=== PATIENT | male | born 1975 | race Caucasian/White ===

== ENCOUNTER 2017-12-04 00:07 | Emergency (ER) | payer OTHER ==
[2017-12-04] MEDS ORDERED: IBUPROFEN 600 MG TAB PO STA (01:07)
--- NOTE | 2017-12-04 01:11 | ED ---
General Adult HPI - General Chief complaint: Recheck/Abnormal Lab/Rx Stated complaint: Syncope Time Seen by Provider: 12/04/17 00:32 Source: patient, RN notes reviewed Mode of arrival: ambulatory Limitations: no limitations - History of Present Illness Initial comments: This is a 42-year-old male who presents to the emergency department with multiple complaints. Patient states that he is visiting his mother who has been hospitalized in the ICU. He states that he has been sober from alcohol for the past 2 years. Patient states that he has been very stressed with his mother in the hospital and drank approximately 8 beers today. He states that he "fell out" twice today. Patient describes this as passing out for approximately 5-7 minutes each time. Patient states the first time he was awoken by his cell phone ringing and the second time he was awoke by a stranger while he was at the home. Patient also complains of right upper quadrant pain and nausea. He does state he has a history of pancreatitis. Patient states he also feels short of breath. Denies fevers or chills, chest pain. - Related Data Allergies Allergy/AdvReac Type Severity Reaction Status Date / Time No Known Allergies Allergy Verified 12/04/17 00:31 Review of Systems ROS Statement: Those systems with pertinent positive or pertinent negative responses have been documented in the HPI. ROS Other: All systems not noted in ROS Statement are negative. Past Medical History Past Medical History: Diabetes Mellitus, Liver Disease, Renal Disease Additional Past Medical History / Comment(s): gout, Kidney stones, Heart murmur, History of Any Multi-Drug Resistant Organisms: None Reported Past Surgical History: No Surgical Hx Reported Past Psychological History: No Psychological Hx Reported Smoking Status: Current every day smoker Past Alcohol Use History: Occasional Past Drug Use History: None Reported General Exam - General Exam Comments Initial Comments: General: Awake and alert, well-developed; in no apparent distress. Patient speaking rapidly. Will not make eye contact. HEENT: Head atraumatic, normocephalic. Pupils are equal, round and reactive to light. Extraocular movements intact. Oropharynx moist without erythema or exudate. Neck: Supple. Normal ROM. Cardiovascular: Regular rate and rhythm. No murmurs, rubs or gallops. Chest symmetrical. Respiratory: Lungs clear to auscultation bilaterally. No wheezes, rales or rhonchi. Normal respiratory effort with no use of accessory muscles. Abdomen: Soft, non-distended. Generalized tenderness on palpation, however increased tenderness to the right upper quadrant and epigastric regions with associated guarding. No rebound or rigidity. Normal bowel sounds in all 4 quadrants. Musculoskeletal: Normal ROM, no tenderness bilateral upper and lower extremities. Ambulating normally. Skin: [place], warm and dry without rashes or lesions. Neurological: Alert and oriented x3. CN II-XII grossly intact. Speech is fluent and answers are appropriate. No focal neuro deficits. Psychiatric: Patient does appear intoxicated. Hyperverbal. Poor insight and historian. Limitations: no limitations Course Vital Signs 12/04/17 12/04/17 12/04/17 00:24 01:04 01:16 Temperature 98.2 F Pulse Rate 128 H 108 H Pulse Rate [ 116 H Flavorings Compounder ] Respiratory 18 18 Rate Blood Pressure 135/95 117/77 O2 Sat by Pulse 98 98 Oximetry 12/04/17 02:28 Temperature Pulse Rate 112 H Pulse Rate [ Flavorings Compounder ] Respiratory 18 Rate Blood Pressure 134/76 O2 Sat by Pulse 95 Oximetry EKG Findings - EKG Comments: EKG Findings:: 0:53:15. Sinus tachycardia, otherwise normal ECG. Ventricular rate 106 bpm, UT interval 144, QRS duration 78, QT/QTC 328/435 Medical Decision Making - Medical Decision Making This is a 42-year-old male who presented to the emergency department with multiple complaints. Patient stated that he has been sober from alcohol for the past 2 years. He states that his mother has been in the ICU and then he drank alcohol today. He states that he drank 8 beers. Blood alcohol content is 278. Patient is not sober until 11 AM tomorrow. EKG revealed sinus tachycardia. This was discussed with patient who states he will try to find a ride home. Patient also tested positive for cocaine. Patient has had tachycardia while in the emergency department. This is most likely directly related to cocaine use. Patient complained of shortness of breath as well as right upper quadrant abdominal pain. CBC, CMP and UA were unremarkable. Liver , kidney, gallbladder and pancreatic enzymes were within normal limits. Patient complained of passing out twice today. Computed tomography scan of the brain was obtained which revealed no acute abnormalities. Findings were discussed with patient who does admit to using cocaine earlier in the day. Patient was advised that he is not sober until 11 AM this morning. He will not be discharged home unless he finds a ride. - Lab Data Result diagrams: 12/04/17 01:01 12/04/17 01:01 Lab Results 12/04/17 12/04/17 12/04/17 Range/Units 01:01 01:01 01:01 WBC 4.6 (3.8-10.6) k/uL RBC 4.94 (4.30-5.90) m/uL Hgb 14.2 (13.0-17.5) gm/dL Hct 42.3 (39.0-53.0) % MCV 85.7 (80.0-100.0) fL MCH 28.7 (25.0-35.0) pg MCHC 33.6 (31.0-37.0) g/dL RDW 15.0 (11.5-15.5) % Plt Count 272 (150-450) k/uL Neutrophils % 42 % Lymphocytes % 44 % Monocytes % 7 % Eosinophils % 2 % Basophils % 1 % Neutrophils # 2.0 (1.3-7.7) k/uL Lymphocytes # 2.0 (1.0-4.8) k/uL Monocytes # 0.3 (0-1.0) k/uL Eosinophils # 0.1 (0-0.7) k/uL Basophils # 0.1 (0-0.2) k/uL PT 10.4 (9.0-12.0) sec INR 1.1 (<1.2) APTT 24.2 (22.0-30.0) sec Sodium 144 (137-145) mmol/L Potassium 4.0 (3.5-5.1) mmol/L Chloride 103 (98-107) mmol/L Carbon Dioxide 22 (22-30) mmol/L Anion Gap 19 mmol/L BUN 14 (9-20) mg/dL Creatinine 0.70 (0.66-1.25) mg/dL Est GFR (CKD-EPI)AfAm >90 (>60 ml/min/1.73 sqM) Est GFR (CKD-EPI)NonAf >90 (>60 ml/min/1.73 sqM) Glucose 115 H (74-99) mg/dL Calcium 9.5 (8.4-10.2) mg/dL Magnesium 1.8 (1.6-2.3) mg/dL Total Bilirubin 0.4 (0.2-1.3) mg/dL AST 31 (17-59) U/L ALT 24 (21-72) U/L Alkaline Phosphatase 106 (38-126) U/L Ammonia (<30) umol/L Troponin I (0.000-0.034) ng/mL Total Protein 8.8 H (6.3-8.2) g/dL Albumin 4.8 (3.5-5.0) g/dL Amylase 89 (30-110) U/L Lipase 292 (23-300) U/L Urine Color Urine Appearance (Clear) Urine pH (5.0-8.0) Ur Specific [place] (1.001-1.035) Urine Protein (Negative) Urine Glucose (UA) (Negative) Urine Ketones (Negative) Urine Blood (Negative) Urine Nitrite (Negative) Urine Bilirubin (Negative) Urine Urobilinogen (<2.0) mg/dL Ur Leukocyte Esterase (Negative) Urine RBC (0-5) /hpf Urine WBC (0-5) /hpf Urine Bacteria (None) /hpf Hyaline Casts (0-2) /lpf Urine Mucus (None) /hpf Salicylates <1.0 mg/dL Urine Opiates Screen (NotDetected) Ur Oxycodone Screen (NotDetected) Urine Methadone Screen (NotDetected) Ur Propoxyphene Screen (NotDetected) Acetaminophen <10.0 ug/mL Ur Barbiturates Screen (NotDetected) U Tricyclic Antidepress (NotDetected) Ur Phencyclidine Scrn (NotDetected) Ur Amphetamines Screen (NotDetected) U Methamphetamines Scrn (NotDetected) U Benzodiazepines Scrn (NotDetected) Urine Cocaine Screen (NotDetected) U Marijuana (THC) Screen (NotDetected) Serum Alcohol 278 mg/dL 12/04/17 12/04/17 12/04/17 Range/Units 01:01 01:01 01:05 WBC (3.8-10.6) k/uL RBC (4.30-5.90) m/uL Hgb (13.0-17.5) gm/dL Hct (39.0-53.0) % MCV (80.0-100.0) fL MCH (25.0-35.0) pg MCHC (31.0-37.0) g/dL RDW (11.5-15.5) % Plt Count (150-450) k/uL Neutrophils % % Lymphocytes % % Monocytes % % Eosinophils % % Basophils % % Neutrophils # (1.3-7.7) k/uL Lymphocytes # (1.0-4.8) k/uL Monocytes # (0-1.0) k/uL Eosinophils # (0-0.7) k/uL Basophils # (0-0.2) k/uL PT (9.0-12.0) sec INR (<1.2) APTT (22.0-30.0) sec Sodium (137-145) mmol/L Potassium (3.5-5.1) mmol/L Chloride (98-107) mmol/L Carbon Dioxide (22-30) mmol/L Anion Gap mmol/L BUN (9-20) mg/dL Creatinine (0.66-1.25) mg/dL Est GFR (CKD-EPI)AfAm (>60 ml/min/1.73 sqM) Est GFR (CKD-EPI)NonAf (>60 ml/min/1.73 sqM) Glucose (74-99) mg/dL Calcium (8.4-10.2) mg/dL Magnesium (1.6-2.3) mg/dL Total Bilirubin (0.2-1.3) mg/dL AST (17-59) U/L ALT (21-72) U/L Alkaline Phosphatase (38-126) U/L Ammonia 25 (<30) umol/L Troponin I <0.012 (0.000-0.034) ng/mL Total Protein (6.3-8.2) g/dL Albumin (3.5-5.0) g/dL Amylase (30-110) U/L Lipase (23-300) U/L Urine Color Yellow Urine Appearance Clear (Clear) Urine pH 5.5 (5.0-8.0) Ur Specific [place] 1.022 (1.001-1.035) Urine Protein 1+ H (Negative) Urine Glucose (UA) Negative (Negative) Urine Ketones Negative (Negative) Urine Blood Trace H (Negative) Urine Nitrite Negative (Negative) Urine Bilirubin Negative (Negative) Urine Urobilinogen <2.0 (<2.0) mg/dL Ur Leukocyte Esterase Negative (Negative) Urine RBC 1 (0-5) /hpf Urine WBC 5 (0-5) /hpf Urine Bacteria Rare H (None) /hpf Hyaline Casts 27 H (0-2) /lpf Urine Mucus Occasional H (None) /hpf Salicylates mg/dL Urine Opiates Screen Not Detected (NotDetected) Ur Oxycodone Screen Not Detected (NotDetected) Urine Methadone Screen Not Detected (NotDetected) Ur Propoxyphene Screen Not Detected (NotDetected) Acetaminophen ug/mL Ur Barbiturates Screen Not Detected (NotDetected) U Tricyclic Antidepress Not Detected (NotDetected) Ur Phencyclidine Scrn Not Detected (NotDetected) Ur Amphetamines Screen Not Detected (NotDetected) U Methamphetamines Scrn Not Detected (NotDetected) U Benzodiazepines Scrn Not Detected (NotDetected) Urine Cocaine Screen Detected H (NotDetected) U Marijuana (THC) Screen Not Detected (NotDetected) Serum Alcohol mg/dL - Radiology Data Radiology results: report reviewed CT brain without contrast impression: Negative computed tomography scan of brain. Disposition Clinical Impression: Alcohol intoxication, Cocaine intoxication Disposition: HOME SELF-CARE Condition: Fair Instructions: Alcohol Intoxication (ED), Abuse of Alcohol (ED), Cocaine Abuse ( ED) Additional Instructions: Please follow up with primary care provider within 1-2 days. Return to emergency department if symptoms should worsen or any concerns arise. Is patient prescribed a controlled substance at d/c from ED?: No Referrals: None,Stated [Primary Care Provider] - 1-2 days
[2017-12-04] MEDS ORDERED: SODIUM CHLORIDE 0.9% 1,000 ML IV STA (01:13)
[2017-12-04] MEDS ORDERED: ONDANSETRON 4 MG/2 ML VIAL IVP STA (01:31)
--- NOTE | 2017-12-04 01:34 | CT ---
EXAMINATION TYPE: CT brain wo con DATE OF EXAM: 12/04/2017 COMPARISON: NONE HISTORY: No prior, RUQ abd pain with syncopal episodes x2 today CT DLP: 1168 mGycm. Automated Exposure Control for Dose Reduction was Utilized. TECHNIQUE: CT scan of the head is performed without contrast. FINDINGS: Ventricles and sulci appear normal. There is no mass effect nor midline shift. There is no sign of intracranial hemorrhage. The calvarium appears normal. IMPRESSION: Negative CT scan of the brain.
[2017-12-04 01:41] LABS: INR 1.1 (<1.2); Partial Thromboplastin Time 24.2 sec (22.0-30.0); Prothrombin Time 10.4 sec (9.0-12.0)
[2017-12-04 01:44] LABS: ALT 24 U/L (21-72); AST 31 U/L (17-59); Acetaminophen <10.0 ug/mL; Albumin 4.8 g/dL (3.5-5.0); Alkaline Phosphatase 106 U/L (38-126); Amylase 89 U/L (30-110); Anion Gap 19 mmol/L; Blood Urea Nitrogen 14 mg/dL (9-20); Calcium 9.5 mg/dL (8.4-10.2); Carbon Dioxide 22 mmol/L (22-30); Chloride 103 mmol/L (98-107); Glucose 115 mg/dL (74-99); Lipase 292 U/L (23-300); Magnesium 1.8 mg/dL (1.6-2.3); Salicylate <1.0 mg/dL; Sodium 144 mmol/L (137-145); Total Bilirubin 0.4 mg/dL (0.2-1.3); Total Protein 8.8 g/dL (6.3-8.2)
[2017-12-04 01:44] LABS: Appearance,Urine Clear (Clear); Bacteria,Urine Rare /hpf; Bilirubin,Urine Negative (Negative); Blood,Urine Trace (Negative); Color,Urine Yellow; Glucose,Urine (UA) Negative (Negative); Hyaline Casts,Urine 27 /lpf (0-2); Ketones,Urine Negative (Negative); Leukocyte Esterase,Urine Negative (Negative); Mucus,Urine Occasional /hpf; Nitrite,Urine Negative (Negative); PH, Urine 5.5 (5.0-8.0); Protein,Urine 1+ (Negative); RBC,Urine 1 /hpf (0-5); Specific Gravity,Urine 1.022 (1.001-1.035); Urobilinogen,Urine <2.0 mg/dL (<2.0); WBC,Urine 5 /hpf (0-5)
[2017-12-04 01:49] LABS: Basophils # (A) 0.1 k/uL (0-0.2); Basophils % (A) 1 %; Eosinophils # (A) 0.1 k/uL (0-0.7); Eosinophils % (A) 2 %; HCT 42.3 % (39.0-53.0); HGB 14.2 gm/dL (13.0-17.5); Lymphocytes % (A) 44 %; MCH 28.7 pg (25.0-35.0); MCHC 33.6 g/dL (31.0-37.0); MCV 85.7 fL (80.0-100.0); Monocytes # (A) 0.3 k/uL (0-1.0); Monocytes % (A) 7 %; Neutrophils % (A) 42 %; Platelet Count 272 k/uL (150-450); RBC 4.94 m/uL (4.30-5.90); WBC 4.6 k/uL (3.8-10.6)
[2017-12-04 01:53] LABS: Amphetamine Screen,Urine Not Detected (NotDetected); Barbiturate Screen,Urine Not Detected (NotDetected); Benzodiazepines Screen,Urine Not Detected (NotDetected); Cocaine Screen,Urine Detected (NotDetected); Methadone Screen, Urine Not Detected (NotDetected); Opiate Screen,Urine Not Detected (NotDetected); Oxycodone Screen, Urine Not Detected (NotDetected); Phencyclidine Screen,Urine Not Detected (NotDetected); Tricyclic Antidepressant,Urine Not Detected (NotDetected); Urn Cannabinoid Scrn Not Detected (NotDetected)
[2017-12-04 02:11] LABS: Alcohol 278 mg/dL
[2017-12-04 11:14] VITALS: BP 133/83; PULSE 80; RESP 18; TEMP 98.4
== END 2017-12-04 11:13 | disposition home or self-care (01) ==
LOC: EC 00:07
DX: F10.129 Alcohol abuse with intoxication, unspecified (principal); F14.129 Cocaine abuse with intoxication, unspecified; R00.0 Tachycardia, unspecified; R06.02 Shortness of breath; R10.11 Right upper quadrant pain; R11.0 Nausea; F17.200 Nicotine dependence, unspecified, uncomplicated
CPT/HCPCS: 36415; 93005; 80053; 82140; 82150; 83690; 83735; 84484; 85025; 85610; 85730; 81001; 80306; 83520 ×2; 80320; 70450; 99284; 96374; 96361; J2405

== ENCOUNTER 2018-02-06 03:43 | Inpatient (IN) | payer MEDICAID, OTHER ==
[2018-02-06] MEDS ORDERED: IBUPROFEN 400 MG TAB PO STA (04:37)
[2018-02-06] MEDS ORDERED: KETOROLAC 30 MG/ML 1 ML VIAL IVP STA ×2 (04:47→10:51)
[2018-02-06 05:13] LABS: HCT 42.7 % (39.0-53.0); HGB 14.1 gm/dL (13.0-17.5); MCH 28.4 pg (25.0-35.0); MCV 85.9 fL (80.0-100.0); Platelet Count 167 k/uL (150-450); RBC 4.97 m/uL (4.30-5.90); RDW 15.2 % (11.5-15.5); WBC 4.5 k/uL (3.8-10.6)
[2018-02-06 05:23] LABS: ALT 66 U/L (21-72); AST 106 U/L (17-59); Albumin 4.9 g/dL (3.5-5.0); Alkaline Phosphatase 114 U/L (38-126); Amylase 121 U/L (30-110); Anion Gap 14 mmol/L; Blood Urea Nitrogen 10 mg/dL (9-20); Calcium 9.2 mg/dL (8.4-10.2); Carbon Dioxide 22 mmol/L (22-30); Chloride 107 mmol/L (98-107); Glucose 104 mg/dL (74-99); Lipase 369 U/L (23-300); Potassium 3.8 mmol/L (3.5-5.1); Sodium 143 mmol/L (137-145); Total Bilirubin 0.5 mg/dL (0.2-1.3); Total Protein 9.2 g/dL (6.3-8.2)
[2018-02-06 05:33] LABS: Appearance,Urine Clear (Clear); Bilirubin,Urine Negative (Negative); Blood,Urine Trace (Negative); Color,Urine Yellow; Glucose,Urine (UA) Negative (Negative); Hyaline Casts,Urine 6 /lpf (0-2); Ketones,Urine Negative (Negative); Leukocyte Esterase,Urine Negative (Negative); Mucus,Urine Rare /hpf; Nitrite,Urine Negative (Negative); Protein,Urine 1+ (Negative); RBC,Urine <1 /hpf (0-5); Specific Gravity,Urine 1.022 (1.001-1.035); Urobilinogen,Urine <2.0 mg/dL (<2.0); WBC,Urine 1 /hpf (0-5)
[2018-02-06 06:24] LABS: Eosinophils # (M) 0.09 k/uL (0-0.7); Lymphocytes # (M) 1.89 k/uL (1.0-4.8); Monocytes # (M) 0.41 k/uL (0-1.0); Neutrophils # (M) 2.12 k/uL (1.3-7.7); Neutrophils % (M) 47 %; Nucleated Red Blood Cells 0 /100 WBC (0-0); Total Cells Counted 100
[2018-02-06 06:25] LABS: Anisocytosis (M) Present
[2018-02-06 06:30] LABS: Polychromasia Present
[2018-02-06] MEDS ORDERED: DICYCLOMINE 10 MG/ML 2 ML AMP IM STA (06:30)
[2018-02-06 06:35] LABS: Poikilocytosis (M) Present
--- NOTE | 2018-02-06 06:40 | ED ---
Psych HPI - General Source: EMS Mode of arrival: EMS Limitations: no limitations - History of Present Illness MD Complaint: other -: unknown Associated Psychiatric Symptoms: racing thoughts Quality: constant Improves With: none Worsens With: none <Alfonzo Lyons - Last Filed: 02/06/18 06:36> <Rob Oliveira - Last Filed: 02/07/18 15:36> - General Chief Complaint: Psychiatric Symptoms Stated Complaint: Petition Time Seen by Provider: 02/06/18 04:01 - History of Present Illness Initial Comments: This patient is a 43-year-old man brought by EMS to have psychiatric evaluation. The patient reports that he had called police to have them bring him to the [facility]. He states that he had to report the crime that was going on, however he states that the police called the ambulance and had him brought here. The patient states that he is aware of some drug crime that are going on and that the FBI and [facility] will want to know information that he has. Patient denies suicidal or homicidal ideation. (Alfonzo Lyons) - Related Data Home Medications Medication Instructions Recorded Confirmed No Known Home Medications 02/06/18 02/06/18 Allergies Allergy/AdvReac Type Severity Reaction Status Date / Time No Known Allergies Allergy Verified 12/04/17 08:13 Review of Systems ROS Other: All systems not noted in ROS Statement are negative. Constitutional: Denies: fever, chills Eyes: Denies: vision change Respiratory: Denies: cough, dyspnea Cardiovascular: Denies: chest pain, palpitations Gastrointestinal: Reports: abdominal pain. Denies: vomiting, diarrhea Genitourinary: Denies: dysuria Musculoskeletal: Denies: back pain Skin: Denies: rash Neurological: Denies: headache, weakness, numbness Psychiatric: Reports: anxiety. Denies: visual hallucinations, homicidal thoughts, suicidal thoughts <Alfonzo Lyons - Last Filed: 02/06/18 06:36> ROS Other: All systems not noted in ROS Statement are negative. <Rob Oliveira - Last Filed: 02/07/18 15:36> ROS Statement: Those systems with pertinent positive or pertinent negative responses have been documented in the HPI. Past Medical History Past Medical History: Diabetes Mellitus, Liver Disease, Renal Disease Additional Past Medical History / Comment(s): gout, Kidney stones, Heart murmur, History of Any Multi-Drug Resistant Organisms: None Reported Past Surgical History: No Surgical Hx Reported Past Psychological History: No Psychological Hx Reported Smoking Status: Current every day smoker Past Alcohol Use History: Occasional Past Drug Use History: None Reported <YesicaAlfonzo marx - Last Filed: 02/06/18 06:36> General Exam Limitations: no limitations General appearance: alert, in no apparent distress Head exam: Present: atraumatic, normocephalic Eye exam: Present: normal appearance. Absent: scleral icterus, conjunctival injection Respiratory exam: Present: normal lung sounds bilaterally. Absent: respiratory distress, wheezes, rales, rhonchi, stridor Cardiovascular Exam: Present: regular rate, normal rhythm, normal heart sounds. Absent: systolic murmur, diastolic murmur, rubs, gallop GI/Abdominal exam: Present: soft. Absent: distended, tenderness, guarding, rebound, mass Neurological exam: Present: alert, oriented X3, normal gait Psychiatric exam: Present: anxious. Absent: depressed, agitated, flat affect, homicidal ideation, suicidal ideation Skin exam: Present: warm, dry, intact, normal color. Absent: rash <SerenaAlfonzo - Last Filed: 02/06/18 06:36> Course <SerenaAlfonzo - Last Filed: 02/06/18 06:36> <Rob Oliveira - Last Filed: 02/07/18 15:36> Vital Signs 02/06/18 02/06/18 02/06/18 03:48 06:27 10:55 Temperature 97.5 F L 97.5 F L Pulse Rate 129 H 79 116 H Respiratory 20 20 24 Rate Blood Pressure 139/72 117/70 109/66 O2 Sat by Pulse 96 99 98 Oximetry 02/06/18 02/07/18 02/07/18 22:36 00:15 03:43 Temperature Pulse Rate 75 Respiratory 16 17 16 Rate Blood Pressure 144/89 O2 Sat by Pulse 99 Oximetry 02/07/18 07:39 Temperature Pulse Rate 92 Respiratory 18 Rate Blood Pressure 124/74 O2 Sat by Pulse 98 Oximetry - Reevaluation(s) Reevaluation #1: 02/06/18 16:09 Patient is resting comfortably throughout the day I did fill out a clinical certification the patient. He is pending transfer or admission based on bed availability. (Rob Oliveira) Medical Decision Making - Lab Data Result diagrams: 02/06/18 04:56 02/06/18 04:56 <YesicaAlfonzo marx - Last Filed: 02/06/18 06:36> - Lab Data Result diagrams: 02/06/18 04:56 02/06/18 04:56 <Rob Oliveira - Last Filed: 02/07/18 15:36> - Medical Decision Making Patient was evaluated again by the EPS service she will be admitted to this facility (Rob Oliveira) - Lab Data Lab Results 02/06/18 02/06/18 02/06/18 Range/Units 04:56 04:56 05:12 WBC 4.5 (3.8-10.6) k/uL RBC 4.97 (4.30-5.90) m/uL Hgb 14.1 (13.0-17.5) gm/dL Hct 42.7 (39.0-53.0) % MCV 85.9 (80.0-100.0) fL MCH 28.4 (25.0-35.0) pg MCHC 33.0 (31.0-37.0) g/dL RDW 15.2 (11.5-15.5) % Plt Count 167 (150-450) k/uL Neutrophils % (Manual) 47 % Lymphocytes % (Manual) 42 % Monocytes % (Manual) 9 % Eosinophils % (Manual) 2 % Neutrophils # (Manual) 2.12 (1.3-7.7) k/uL Lymphocytes # (Manual) 1.89 (1.0-4.8) k/uL Monocytes # (Manual) 0.41 (0-1.0) k/uL Eosinophils # (Manual) 0.09 (0-0.7) k/uL Nucleated RBCs 0 (0-0) /100 WBC Manual Slide Review Performed Polychromasia Present Poikilocytosis (manual Present Anisocytosis (manual) Present Sodium 143 (137-145) mmol/L Potassium 3.8 (3.5-5.1) mmol/L Chloride 107 (98-107) mmol/L Carbon Dioxide 22 (22-30) mmol/L Anion Gap 14 mmol/L BUN 10 (9-20) mg/dL Creatinine 0.70 (0.66-1.25) mg/dL Est GFR (CKD-EPI)AfAm >90 (>60 ml/min/1.73 sqM) Est GFR (CKD-EPI)NonAf >90 (>60 ml/min/1.73 sqM) Glucose 104 H (74-99) mg/dL Calcium 9.2 (8.4-10.2) mg/dL Total Bilirubin 0.5 (0.2-1.3) mg/dL AST 106 H (17-59) U/L ALT 66 (21-72) U/L Alkaline Phosphatase 114 (38-126) U/L Total Protein 9.2 H (6.3-8.2) g/dL Albumin 4.9 (3.5-5.0) g/dL Amylase 121 H (30-110) U/L Lipase 369 H (23-300) U/L TSH 1.000 (0.465-4.680) mIU/L Urine Color Yellow Urine Appearance Clear (Clear) Urine pH 5.0 (5.0-8.0) Ur Specific [place] 1.022 (1.001-1.035) Urine Protein 1+ H (Negative) Urine Glucose (UA) Negative (Negative) Urine Ketones Negative (Negative) Urine Blood Trace H (Negative) Urine Nitrite Negative (Negative) Urine Bilirubin Negative (Negative) Urine Urobilinogen <2.0 (<2.0) mg/dL Ur Leukocyte Esterase Negative (Negative) Urine RBC <1 (0-5) /hpf Urine WBC 1 (0-5) /hpf Hyaline Casts 6 H (0-2) /lpf Urine Mucus Rare H (None) /hpf Disposition <Alfonzo Lyons - Last Filed: 02/06/18 06:36> <Rob Oliveira - Last Filed: 02/07/18 15:36> Clinical Impression: Acute psychosis Disposition: TRANSFER TO PSYCH HOSP/UNIT Condition: Stable Referrals: None,Stated [Primary Care Provider] - 1-2 days
[2018-02-07] MEDS ORDERED: DICYCLOMINE 20 MG TAB PO STA ×2 (00:04→14:39)
[2018-02-07] MEDS ORDERED: LORazepam 2 MG/ML INJ IV STA (00:04)
[2018-02-07] MEDS ORDERED: MAGNESIUM HYDROXIDE 2,400 MG/10 ML CUP PO PRN (16:00)
[2018-02-07] MEDS ORDERED: ACETAMINOPHEN TAB 325 MG TAB PO PRN (16:00)
[2018-02-07] MEDS ORDERED: ZIPRASIDONE 20 MG VIAL IM PRN (16:00)
[2018-02-07] MEDS: LORazepam 1 MG TAB PO PRN (20:39)
--- NOTE | 2018-02-07 23:06 | P.MDCNMH ---
History of Present Illness H&P Date: 02/07/18 Chief Complaint: RUQ abd discomfort 43-year-old male with history of hypertension. Patient was brought into the hospital by an ambulance due to him calling the police asking to see the [employer] to report some drug crimes. He denies any suicidal or homicidal ideation. He reports that he knows some information about the current drug crimes is going on. Patient also reported some right upper quadrant abdominal pain that has been going on for 2 years he described it as achy pain sometimes sharp 7 out of 10 in severity when it severe comes and goes no aggravating or alleviating factors. Even when he quit alcohol for 10 months the pain persisted. He reports that the pain doesn't wake him up from sleep there is no nausea or vomiting. He denies any changes in his bowel habits but he reports symptoms she feels bloated. Patient otherwise denies any fevers chills, chest pain or trouble breathing, denies any GI bleeding. He has seen a physician in the past who told him that he has liver cirrhosis he never had colonoscopy done Review of Systems Pertinent positives as noted in HPI. All other systems were reviewed and are negative Past Medical History Past Medical History: Diabetes Mellitus, Hypertension, Liver Disease, Renal Disease Additional Past Medical History / Comment(s): gout, Kidney stones, Heart murmur, History of Any Multi-Drug Resistant Organisms: None Reported Past Surgical History: No Surgical Hx Reported Past Psychological History: No Psychological Hx Reported Smoking Status: Current every day smoker Past Alcohol Use History: Occasional Past Drug Use History: None Reported - Past Family History Family Additional Family Medical History / Comment(s): Denies family history of CAD Medications and Allergies Home Medications Medication Instructions Recorded Confirmed Type No Known Home Medications 02/06/18 02/06/18 History Allergies Allergy/AdvReac Type Severity Reaction Status Date / Time No Known Allergies Allergy Verified 12/04/17 08:13 Physical Exam Vitals: Vital Signs Temp Pulse Pulse Resp BP BP Pulse Ox 02/07/18 16:37 97.0 F L 82 15 133/84 02/07/18 07:39 92 18 124/74 98 02/07/18 03:43 16 02/07/18 00:15 75 17 144/89 99 Intake and Output 02/07/18 02/07/18 02/07/18 06:59 14:59 22:59 Other: Weight 77.1 kg Constitutional: No acute distress, conversant, pleasant Eyes: Anicteric sclerae, moist conjunctiva, no lid-lag Pupils equal round reactive to light ENMT: NC/AT Oropharynx clear, no erythema, exudates Neck: Supple, FROM, no masses, or JVD No carotid bruits No thyromegaly Lungs: Clear to auscultation Clear to percussion Normal respiratory effort, no accessory muscle use Cardiovascular: Heart regular in rate and rhythm, No murmurs, gallops, or rubs No peripheral edema Abdominal: Soft, some discomfort to deep palpation of the right upper quadrant, no guarding, rebound or rigidity Abdomen moving with respiration Normoactive bowel sounds No hepatomegaly, No splenomegaly No palpable mass No abdominal wall hernia noted Skin: Normal temperature, tone, texture, turgor No induration No subcutaneous nodules No rash, lesions No ulcers Extremities: No digital cyanosis No clubbing Pedal pulses intact and symmetrical Radial pulses intact and symmetrical No calf tenderness Psychiatric: Alert and oriented to person, place and time Manic affect Poor judgment Neuro Muscles Strength 5/5 in all 4 extremities Sensation to light touch grossly present throughout Cranial nerves II-XII grossly intact No focal sensory deficits Lymphatics: no palpable cervical or supraclavicular , or inguinal lymph nodes Cranial Nerve Examination - Cranial Nerves Cranial Nerve II- Optic: Intact Cranial Nerve III- Oculomotor: Intact Cranial Nerve IV- Trochlear: Intact Cranial Nerve V- Trigeminal: Intact Cranial Nerve - Abducens: Intact Cranial Nerve VII- Facial: Intact Cranial Nerve VIII- Auditory: Intact Cranial Nerve IX- Glossopharyngeal: Intact Cranial Nerve X- Vagus: Intact Cranial Nerve XI- Accessory: Intact Cranial Nerve XII- Hypoglossal: Intact Results CBC & Chem 7: 02/06/18 04:56 02/06/18 04:56 Assessment and Plan Assessment: 43-year-old male presented to the hospital with delusional thoughts, medicine was counseled to do the right upper quadrant abdominal pain which has been going on for 2 years. Patient was told in the past that he has liver cirrhosis. Plan: Delusional thoughts Management per psych Right upper quadrant abdominal pain Slightly elevated liver enzymes Slightly elevated lipase, nonspecific Check right upper quadrant abdominal ultrasound to rule out gallstones, liver cirrhosis or fatty liver Alcohol abuse Withdrawal precautions Thiamine CIWA when necessary benzo Patient is low risk for DVT patient is ambulatory Thank you for allowing us to participate in the care of this patient. We will follow peripherally. Do not hesitate to contact us with questions. Someone can be reached from the [facility] hospitalist group at all hours of the day at [phone].
[2018-02-08] MEDS: LORazepam 1 MG TAB PO PRN ×2 (08:32→21:22)
--- NOTE | 2018-02-08 11:33 | US ---
EXAMINATION TYPE: US abdomen limited DATE OF EXAM: 02/08/2018 COMPARISON: NONE CLINICAL HISTORY: RUQ abd discomfort , alcohol abuse. Pt states ABD pain EXAM MEASUREMENTS: Liver Length: 13.9 cm Gallbladder Wall: 0.3 cm CBD: 0.3 cm Right Kidney: 11.9 x 5.9 x 6.0 cm Pancreas: Obscured by bowel gas Liver: There is some increased echogenicity, coarse appearance within the liver without focal mass. Gallbladder: wnl Evidence for sonographic Amaral's sign: Yes CBD: wnl Right Kidney: wnl There is no ascites. IMPRESSION: Exam is limited. Correlate for possible hepatocellular disease, possible hepatic steatosi s.
--- NOTE | 2018-02-08 15:23 | P.HP ---
Psychiatric H&P - . H&P Date: 02/08/18 History & Physical: IDENTIFYING DATA: The patient is a 43-year-old single [place] male who presented to the psychiatric unit voluntarily. HISTORY OF PRESENT ILLNESS: He stated that he agreed to this admission because staff in the emergency room told him that unless he came to the psychiatric unit he would be restrained. He alleged that he does not understand the reason the police brought him to the emergency room. He was temporarily staying with his mother who has a "summer home" in [facility]. He stated that he called the state police because he wanted to address an old DUI citation. On the telephone an officer told him that they have no record of an old DUI citation. After telephone call he left his mother's home and several police officers approached him. He alleged the officers told that they're taking him to this hospital because the hospital was "closer than [facility]." He alleged that his mother completed a petition but I could not find a copy of the petition and his medical record. On presentation to the ER his blood alcohol level was 0.204. He was restless and agitated and required IM sedation. He has a history of alcohol use problems and was discharged from [facility] in January 2018 to one of the [facility]. He was discharge from a three-quarter house after he returned from a pass intoxicated. After he left [facility] he went to his mother's home in [facility]. He denied feeling depressed, hopeless or helpless. He denied feelings of guilt or thoughts of or suicide. He denied persistent insomnia, thoughts or feelings of incapacity, fatigue and weakness. He denied subjective tension or irritability. He denied somatic anxiety symptoms. He denied persistent anxiety that interferes with his ability to function. He denied experiencing anxiety that built up to crescendo consistent with panic attacks. He denied obsessions or compulsions. He denied experiencing psychotic symptoms such as auditory, visual or olfactory hallucinations, ideas reference, thought insertion set her up. He drinks alcohol but was vague about the amount and frequency. He denied use of other drugs to get high, help him sleep or changes mood. PAST PSYCHIATRIC HISTORY: He had one "brief" psychiatric hospitalization when he was living in [facility]. He denied that he has ever received outpatient mental health services. PAST MEDICAL HISTORY: He is a history of diabetes mellitus, hypertension, liver disease and kidney stones. The medicine consultation appreciated. ALLERGIES: No known ALLERGIES. SUBSTANCE USE HISTORY: He was vague about his history of substance use problems. He admitted a history of alcohol use problems and at least one episode of residential substance abuse treatment. He denied a history of abuse of other substances but I suspect he was not forthright about his use of drugs. He stated that he has experienced severe alcohol withdrawal symptoms in the past and may have had delirium tremens. FAMILY PSYCHIATRIC/SUBSTANCE USE HISTORY: Denied. LEGAL HISTORY: He denied current legal problems. He is not on probation, parole or has pending charges. He stated that he has had multiple charges of past including concealed weapon, uttering and publishing and distribution. He was vague and evasive about his history of arrests or incarceration. SOCIAL HISTORY: He was born and raised in [place] to an intact family. He has 2 brothers. He graduated from high school. He has not held gainful employment. He is currently homeless and has no income. He lived in [facility] for 3 years until returning to [place] earlier this year. MENTAL STATUS EXAM: He presented as a casually groomed 43-year-old male who was pleasant on approach. He made eye contact and attended to the interview. He had no distinguishing features or prominent physical abnormalities. He had a blunted but bright facial expression. He was alert and oriented to person, place and time. He showed no abnormality of psychomotor activity. His gait was steady. His speech was spontaneous with normal rate, rhythm and volume. His affect was blunted but stable and appropriate. He denied suicidal ideation or wishes. He denied homicidal ideation. He denied such depressive cognitions as hopelessness, helplessness or worthlessness. He did not express obsessions, phobias, ideas reference, paranoid ideation, delusions or overvalued ideas. His thinking was abstract and associations were coherent, logical and goal directed. He did not demonstrate clang associations, perseverations, neologisms or blocking. He denied hallucinations and did not appear to be responding to internal stimuli. Global impression of intellect is average to above. He is aware of his alcohol use problems but is unable to explain the circumstances that led to this hospitalization. STRENGTHS: Supportive family, good physical health. WEAKNESSES: Lack of stable housing, lack of income, chronic use of alcohol. IMPRESSION: He is a 43-year-old -[place] male who presented to the psychiatric unit voluntarily. He has a history of alcohol use disorder and was intoxicated on presentation to the ER. He is unable explain the reason for this hospitalization. He denied depression, suicidal ideation, significant anxiety or psychotic symptoms. His history of homelessness and history of multiple legal problems. PRINCIPLE DIAGNOSIS: Alcohol use disorder severe, alcohol intoxication, alcohol withdrawal, alcohol induced mood disorder, rule out alcohol withdrawal delirium , rule out antisocial personality disorder, pancreatitis RECOMMENDATION: Continue inpatient psychiatric hospitalization. Safety precautions. She will protocol with lorazepam for alcohol withdrawal. Consult medicine for initial physical exam and medical history. c iron worker to complete initial psychosocial assessment and assist with placement and aftercare. Monitor for signs and symptoms of delirium. Encourage participation in therapeutic groups and activities. Evaluate current status response to treatment on a daily basis. Allergies Allergy/AdvReac Type Severity Reaction Status Date / Time No Known Allergies Allergy Verified 12/04/17 08:13 Vital Signs Temp 97.8 F 02/08/18 07:18 Pulse 83 02/08/18 07:18 Resp 18 02/08/18 07:18 BP 94/56 02/08/18 07:18 Pulse Ox 100 02/08/18 07:18 Intake & Output 02/07/18 02/08/18 02/08/18 18:59 06:59 18:59 Weight 77.1 kg Laboratory Last Values WBC 4.5 k/uL (3.8-10.6) 02/06/18 04:56 RBC 4.97 m/uL (4.30-5.90) 02/06/18 04:56 Hgb 14.1 gm/dL (13.0-17.5) 02/06/18 04:56 Hct 42.7 % (39.0-53.0) 02/06/18 04:56 MCV 85.9 fL (80.0-100.0) 02/06/18 04:56 MCH 28.4 pg (25.0-35.0) 02/06/18 04:56 MCHC 33.0 g/dL (31.0-37.0) 02/06/18 04:56 RDW 15.2 % (11.5-15.5) 02/06/18 04:56 Plt Count 167 k/uL (150-450) 02/06/18 04:56 Neutrophils % (Manual) 47 % 02/06/18 04:56 Lymphocytes % (Manual) 42 % 02/06/18 04:56 Monocytes % (Manual) 9 % 02/06/18 04:56 Eosinophils % (Manual) 2 % 02/06/18 04:56 Neutrophils # (Manual) 2.12 k/uL (1.3-7.7) 02/06/18 04:56 Lymphocytes # (Manual) 1.89 k/uL (1.0-4.8) 02/06/18 04:56 Monocytes # (Manual) 0.41 k/uL (0-1.0) 02/06/18 04:56 Eosinophils # (Manual) 0.09 k/uL (0-0.7) 02/06/18 04:56 Nucleated RBCs 0 /100 WBC (0-0) 02/06/18 04:56 Manual Slide Review Performed 02/06/18 04:56 Polychromasia Present 02/06/18 04:56 Poikilocytosis (manual Present 02/06/18 04:56 Anisocytosis (manual) Present 02/06/18 04:56 Sodium 143 mmol/L (137-145) 02/06/18 04:56 Potassium 3.8 mmol/L (3.5-5.1) 02/06/18 04:56 Chloride 107 mmol/L (98-107) 02/06/18 04:56 Carbon Dioxide 22 mmol/L (22-30) 02/06/18 04:56 Anion Gap 14 mmol/L 02/06/18 04:56 BUN 10 mg/dL (9-20) 02/06/18 04:56 Creatinine 0.70 mg/dL (0.66-1.25) 02/06/18 04:56 Est GFR (CKD-EPI)AfAm >90 (>60 ml/min/1.73 sqM) 02/06/18 04:56 Est GFR (CKD-EPI)NonAf >90 (>60 ml/min/1.73 sqM) 02/06/18 04:56 Glucose 104 mg/dL (74-99) H 02/06/18 04:56 Calcium 9.2 mg/dL (8.4-10.2) 02/06/18 04:56 Total Bilirubin 0.5 mg/dL (0.2-1.3) 02/06/18 04:56 AST 106 U/L (17-59) H 02/06/18 04:56 ALT 66 U/L (21-72) 02/06/18 04:56 Alkaline Phosphatase 114 U/L (38-126) 02/06/18 04:56 Total Protein 9.2 g/dL (6.3-8.2) H 02/06/18 04:56 Albumin 4.9 g/dL (3.5-5.0) 02/06/18 04:56 Amylase 121 U/L (30-110) H 02/06/18 04:56 Lipase 369 U/L (23-300) H 02/06/18 04:56 TSH 1.090 mIU/L (0.465-4.680) 02/06/18 04:56 Urine Color Yellow 02/06/18 05:12 Urine Appearance Clear (Clear) 02/06/18 05:12 Urine pH 5.0 (5.0-8.0) 02/06/18 05:12 Ur Specific [place] 1.022 (1.001-1.035) 02/06/18 05:12 Urine Protein 1+ (Negative) H 02/06/18 05:12 Urine Glucose (UA) Negative (Negative) 02/06/18 05:12 Urine Ketones Negative (Negative) 02/06/18 05:12 Urine Blood Trace (Negative) H 02/06/18 05:12 Urine Nitrite Negative (Negative) 02/06/18 05:12 Urine Bilirubin Negative (Negative) 02/06/18 05:12 Urine Urobilinogen <2.0 mg/dL (<2.0) 02/06/18 05:12 Ur Leukocyte Esterase Negative (Negative) 02/06/18 05:12 Urine RBC <1 /hpf (0-5) 02/06/18 05:12 Urine WBC 1 /hpf (0-5) 02/06/18 05:12 Hyaline Casts 6 /lpf (0-2) H 02/06/18 05:12 Urine Mucus Rare /hpf (None) H 02/06/18 05:12 02/08/18 15:00
[2018-02-08] MEDS: MAG HYDROX/AL HYDROX/SIMETH 30 ML CUP PO PRN (21:22)
[2018-02-09] MEDS: LORazepam 1 MG TAB PO PRN (10:20)
[2018-02-09] MEDS: MAG HYDROX/AL HYDROX/SIMETH 30 ML CUP PO PRN (10:49)
--- NOTE | 2018-02-09 16:10 | P.PN ---
Progress Note - Text Progress Note Date: 02/09/18 Interval history: Patient seen in [facility] today. He describes the circumstances around his admission. He makes reference to dealing with issues of pancreatitis. His amylase and lipase are elevated, he requests for me to write these numbers down for him. He does describe dealing with pain which currently is improved. Mental status exam: He is alert and cooperative with the interview. His affect does show range. He seems to describe his mood is doing pretty well. He denies any thoughts of harm to self or others. During the session he inquires regarding looking at the computer screen at a certain time and I deferred, related to confidentiality reasons, he made a reference to the [facility], when asked later in the session regarding this he relates that he was just joking. He does not show any significant agitation. He does not verbalize any hallucinations. He inquired regarding the results of the ultrasound which I did read to him the impressions, described to him that the impressions would best be interpreted from the internal medicine physician. Plan: Maintain current treatment regimen. We will ask medical to follow-up regarding concerns of abdominal pain, abdominal ultrasound results. We'll recheck amylase and lipase tomorrow. Continue to monitor his status. We'll continue to cover this patient through the weekend.
--- NOTE | 2018-02-09 17:49 | P.PN ---
Subjective Progress Note Date: 02/09/18 Principal diagnosis: abdominal pain Patient seen and examined regarding testing results. Discussed results with patient. Patient states that he has been having intermittent abdominal pain over the last 2 years. He also history of pancreatitis in the past. He continues to drink intermittently. This typically occurs randomly. Pain is mostly in his right upper quadrant and does not radiate. He denies any recent at risk behaviors such as IV drug use. Objective - Vital Signs Vital signs: Vital Signs Temp 98.2 F 02/09/18 06:44 Pulse 75 02/09/18 06:44 Resp 12 02/09/18 06:44 BP 102/64 02/09/18 06:44 Pulse Ox 100 02/08/18 07:18 - Exam General: non toxic, no distress, appears at stated age Derm: warm, dry Head: atraumatic, normocephalic, symmetric Eyes: EOMI, no lid lag, anicteric sclera Mouth: no lip lesion, mucus membranes moist Neuro: CN II-XI grossly intact, no focal neuro deficits Psych: Alert, oriented, appropriate affect - Labs CBC & Chem 7: 02/06/18 04:56 02/06/18 04:56 Assessment and Plan Assessment: Hepatic steatosis -Most likely related to drinking -Slightly elevated lipase but not diagnostic of otitis -We'll proceed with repeat CMP, lipase, and amylase in a.m. -Discussed with patient the importance of decreasing liver toxin exposure with hepatic steatosis and that this is a potentially reversible condition. Will check lipid profile. I've encouraged him that he needs to find a primary care provider to follow up on chronic basis. And also that he needs to stop drinking. Chronic abdominal pain of 2 years duration -Repeat complete metabolic profile -I have asked the patient [facility]. I've informed him that should he continue to have abdominal pain he may need further imaging or EGD. I've told him if he does not have improvement in his pain after a period of abstinence this be more concerning. I have again told him that there may be a lot of different causes of his pain but due to the chronic nature of this it is more appropriately worked up in the outpatient environment once his mental health issues issues are better controlled. Will review labs in AM and if significantly different/concerning will reconvene with patient.
[2018-02-10] MEDS: LORazepam 1 MG TAB PO PRN ×2 (09:15→23:05)
[2018-02-10 11:40] LABS: ALT 48 U/L (21-72); AST 45 U/L (17-59); Albumin 4.2 g/dL (3.5-5.0); Alkaline Phosphatase 77 U/L (38-126); Amylase 121 U/L (30-110); Anion Gap 9 mmol/L; Blood Urea Nitrogen 16 mg/dL (9-20); Calcium 9.6 mg/dL (8.4-10.2); Carbon Dioxide 28 mmol/L (22-30); Chloride 105 mmol/L (98-107); Glucose 79 mg/dL (74-99); Lipase 576 U/L (23-300); Potassium 4.6 mmol/L (3.5-5.1); Sodium 142 mmol/L (137-145); Total Bilirubin 0.5 mg/dL (0.2-1.3)
--- NOTE | 2018-02-10 14:01 | P.PN ---
Progress Note - Text Progress Note Date: 02/10/18 Interval history: Patient seen in cross coverage today. He reports that his abdominal pain level has been fluctuating some it was higher earlier today but now is improved, he is eating. His amylase stayed the same, there was an increase in lipase. His ALT and AST are within normal limits. Mood shields he seems to be stable. We discussed his lab results from today, he does make reference to understanding abstinence from alcohol would be beneficial for him. Mental status exam: He is alert and cooperative with the interview. His speech is fluent, not rapid or pressured. Thought processes are organized. His mood seems to be stable. He does not verbalize any thoughts of harm to self or others. No evidence of psychosis or agitation. Plan: Continue to monitor patient status. We'll have Dr. Aguilar follow-up regarding elevated lipase.
--- NOTE | 2018-02-10 17:58 | P.PN ---
Subjective Progress Note Date: 02/10/18 The patient seen and examined in the 3W unit. He was pleasant and noted that he continues to have intermittent crampy RUQ pain w/ radiation to back, similar in intensity to pain he had yesterday and has been having for the past 7 years. He denied any particular alleviating or exacerbating factors. He is denying nausea , vomiting, fever, chills, chest pain, SOB, or cough. Objective - Vital Signs Vital signs: Vital Signs Temp 98.2 F 02/09/18 06:44 Pulse 112 H 02/10/18 01:58 Resp 16 02/10/18 01:58 BP 130/87 02/10/18 01:58 Pulse Ox 100 02/08/18 07:18 Intake & Output 02/09/18 02/10/18 02/10/18 18:59 06:59 18:59 Weight 78.2 kg - Exam General: Awake, alert, in no acute distress HEENT: NC/AT, anicteric sclerae, moist conjunctiva, no lid-lag, PERRLA, oropharynx clear, no erythema, exudates Cardiovascular: S1/S2 wnl, no murmurs, rubs, or gallops Lungs: Clear to auscultation, normal respiratory effort, no accessory muscle use Abdominal: Soft, mild RUQ tenderness to palpation, non-distended, no guarding, rebound, or rigidity, normoactive bowel sounds Skin: Warm, dry Extremities: No edema or contractures Psychiatric: Alert and oriented to person, place and time, appropriate affect, Intact judgment Neuro: CN II-XI grossly intact, sensation to light touch grossly present throughout, no focal sensory deficits - Labs CBC & Chem 7: 02/06/18 04:56 02/10/18 11:14 Labs: Abnormal Lab Results - Last 24 Hours (Table) 02/10/18 Range/Units 11:14 Amylase 121 H (30-110) U/L Lipase 576 H (23-300) U/L Assessment and Plan Plan: RUQ abdominal pain, possibly secondary to hepatic steatosis vs mild pancreatitis - Though Lipase is elevated, the patient's clinical picture is not characteristic of acute pancreatitis. Advised patient on adequate oral fluid intake and discussed in length regarding importance of abstinence from alcohol. - In light of no end-organ dysfunction and unchanged chronic pain, will hold off on further testing at this time. If the patient's pain worsens, or if lipase continues to rise, will consider CT abdomen. - Will obtain CBC, CMP, lipase, and amylase in am - C/w pain control w/ Motrin prn Time with Patient: Less than 30
[2018-02-10] MEDS: IBUPROFEN 600 MG TAB PO PRN (18:02)
[2018-02-11] MEDS: IBUPROFEN 600 MG TAB PO PRN (08:24)
[2018-02-11 09:39] LABS: HCT 43.2 % (39.0-53.0); HGB 13.7 gm/dL (13.0-17.5); MCH 28.1 pg (25.0-35.0); MCHC 31.7 g/dL (31.0-37.0); MCV 88.7 fL (80.0-100.0); Mean Platelet Volume 6.5; Platelet Count 229 k/uL (150-450); RBC 4.87 m/uL (4.30-5.90); RDW 14.8 % (11.5-15.5); WBC 3.3 k/uL (3.8-10.6)
[2018-02-11 09:48] LABS: ALT 54 U/L (21-72); AST 43 U/L (17-59); Albumin 4.3 g/dL (3.5-5.0); Alkaline Phosphatase 78 U/L (38-126); Amylase 129 U/L (30-110); Anion Gap 8 mmol/L; Blood Urea Nitrogen 18 mg/dL (9-20); Calcium 9.8 mg/dL (8.4-10.2); Carbon Dioxide 29 mmol/L (22-30); Chloride 104 mmol/L (98-107); Glucose 80 mg/dL (74-99); Lipase 576 U/L (23-300); Potassium 4.2 mmol/L (3.5-5.1); Sodium 141 mmol/L (137-145); Total Bilirubin 0.6 mg/dL (0.2-1.3); Total Protein 8.2 g/dL (6.3-8.2)
[2018-02-11 12:03] LABS: Urine Alcohol Negative (Negative); Urine Barbiturate Negative (Negative); Urine Cocaine Negative (Negative); Urine Methadone Negative (Negative); Urine Opiates Negative (Negative); Urine Phencyclidine Negative (Negative)
--- NOTE | 2018-02-11 12:26 | P.PN ---
Subjective Progress Note Date: 02/11/18 The patient seen and examined in the 3W unit. The patient notes that his abdominal pain is essentially resolved and controlled really well w/ Motrin prn. He endorsed increasing his oral fluid intake and denying nausea, vomiting, diarrhea, constipation, fever, chills, cough, chest pain, or SOB. Objective - Vital Signs Vital signs: Vital Signs Temp 97.6 F 02/11/18 06:18 Pulse 78 02/11/18 06:18 Resp 14 02/11/18 06:18 BP 117/73 02/11/18 06:18 Pulse Ox 100 02/08/18 07:18 Intake & Output 02/10/18 02/11/18 02/11/18 18:59 06:59 18:59 Weight 78.2 kg - Exam General: Awake, alert, in no acute distress HEENT: NC/AT, anicteric sclerae, moist conjunctiva, no lid-lag, PERRLA, oropharynx clear, no erythema, exudates Cardiovascular: S1/S2 wnl, no murmurs, rubs, or gallops Lungs: Clear to auscultation, normal respiratory effort, no accessory muscle use Abdominal: Soft, non-tender, non-distended, no guarding, rebound, or rigidity, normoactive bowel sounds Skin: Warm, dry Extremities: No edema or contractures Psychiatric: Alert and oriented to person, place and time, appropriate affect, Intact judgment Neuro: CN II-XI grossly intact, sensation to light touch grossly present throughout, no focal sensory deficits - Labs CBC & Chem 7: 02/11/18 09:17 02/11/18 09:17 Labs: Abnormal Lab Results - Last 24 Hours (Table) 02/11/18 02/11/18 Range/Units 09:17 09:17 WBC 3.3 L (3.8-10.6) k/uL Amylase 129 H (30-110) U/L Lipase 576 H (23-300) U/L Assessment and Plan Plan: RUQ abdominal pain, possibly secondary to hepatic steatosis vs mild pancreatitis , significantly improved - C/w increased fluid intake - C/w pain control w/ Motrin prn - Again reiterated importance of alcohol cessation and PCP f/u. Time with Patient: Less than 30
[2018-02-11] MEDS: LORazepam 1 MG TAB PO PRN ×2 (13:51→22:23)
--- NOTE | 2018-02-11 15:21 | P.PN ---
Progress Note - Text Progress Note Date: 02/11/18 Clinical Problems: Alcohol use disorder severe, alcohol withdrawal (resolved), abdominal pain secondary to hepatic stenosis and/or pancreatitis Interim history: I reviewed the medical record, interviewed the patient and discuss his treatment and treatment plan during team meeting. He denied alcohol withdrawal symptoms, feelings depression or thoughts of or suicide. He declined to enter a substance abuse treatment program. He stated his plan is to find a job and a affordable room and board. He is ambivalent about returning to his mother's home. He did not want to have a family meeting with his mother and gave various reasons including concern for her well-being. Medical consultants notes appreciated Mental status exam:. He presented as a casually groomed and dressed 43-year- old [place] male who was pleasant on approach. He made eye contact and attended to interview. He was oriented to person, place and time. He had a blunted but bright facial expression. He showed no abnormality of psychomotor activity. He was not tremulous. His speech was spontaneous with normal rate, rhythm and volume. His affect was anxious but stable and appropriate. He denied current suicidal ideation or wishes. He denied such depressive cognitions as hopelessness, helplessness or worthlessness. He denied ideas reference, paranoid ideation or delusional thoughts. His thinking was abstract and associations were coherent, logical and goal directed. He denied hallucinations and did not appear to be responding to internal stimuli. Assessment: He has no significant symptoms of alcohol withdrawal. He recognizes that he has not alcohol withdrawal problem but is not interested in residential substance abuse treatment. Plan: Discharge on 02/12/2018. Continue Current Medications. Encourage Participation in Therapeutic Groups and Activities. Evaluate Clinical Status Response to Treatment Daily Basis.
[2018-02-12 07:08] VITALS: BP 106/69; PULSE 75; RESP 18; TEMP 97.4
[2018-02-12] MEDS: IBUPROFEN 600 MG TAB PO PRN (08:44)
[2018-02-12] MEDS: LORazepam 1 MG TAB PO PRN (08:47)
--- NOTE | 2018-02-12 14:01 | P.DS ---
Providers Date of admission: 02/07/18 15:52 Attending physician: Job Boo MD Consults: 02/07/18 16:00 Consult Physician Routine Consulting Provider: Denisse Physician Consult Reason/Comments: history and physical Do you want consulting provider notified?: Yes Primary care physician: Stated None - Discharge Diagnosis(es) (1) Alcohol use disorder, severe, dependence Status: Chronic Priority: High (2) Alcohol withdrawal Status: Resolved Priority: Low (3) Pancreatitis Status: Chronic Priority: Low Hospital Course: The patient is a 43-year-old single [place] male who presented to the psychiatric unit voluntarily. He was unable to explain the reason for the admission. The police brought him to the Medical Center and his mother completed the petition. He was living at his mother's summer home in [facility] "a couple days" when she asked him to leave. He was vague about the reasons for having to leave her home but we suspect that he relapsed to alcohol. He talked about calling the state police because he wanted to address an old DUI citation. After telephone calls of his mother's home when several police officers approached him and brought him to the Medical Center. On presentation to the ER his blood alcohol level was 0.204. He was restless and agitated and required IM sedation. We admitted him to the psychiatric unit under care of this engineering writer. We provided a comprehensive biopsychosocial assessment. We treated the alcohol withdrawal symptoms she was in the [facility] and lorazepam. He had minimal to mild alcohol withdrawal symptoms uncomplicated by delirium. Medicine service provided the initial physical exam and medical history. He complained of abdominal pain and the databases computer consultant suspect the pain was secondary to hepatic stenosis or a mild pancreatitis. The pain improved with Motrin and alcohol abstinence. The databases computer consultant recommended outpatient care for his medical problems. He denied symptoms of depression or thoughts of or suicide. There is no evidence for psychotic symptoms or major mood disorder. He provided different staff with different plans for aftercare. He was not interested in substance abuse treatment services. At time of discharge she presented as a neatly dressed and casually groomed -[place] male. He made eye contact and attended to the interview. He had no distinguishing features or prominent physical abnormalities. He had a bright facial expression. He is alert and oriented to person, place and time. He showed no abnormality of psychomotor activity. His speech was spontaneous with normal rate, rhythm and volume. His affect was bright, stable and appropriate. He denied suicidal ideation or wishes. He denied homicidal ideation. He denied such depressive cognitions as hopelessness, helplessness or worthlessness. He did not express phobias, ideas reference, paranoid ideation or delusional thoughts. His thinking was abstract and associations were coherent, logical and goal directed. He denied hallucinations and did not appear to be responding to internal stimuli. Patient Condition at Discharge: Stable Plan - Discharge Summary Discharge Rx Participant: Yes New Discharge Prescriptions: Continue No Known Home Medications Discharge Medication List No Known Home Medications 02/06/18 [History] Follow up Appointment(s)/Referral(s): [facility] [Outside] - 1-2 Days (walk in intake Sunday 830 - 130 830 - 300 Sunday 830 - 3) None,Stated [Primary Care Provider] - 1-2 days [facility] Patient Instructions/Handouts: How to Stop Smoking (DC), Abuse of Alcohol (DC) Activity/Diet/Wound Care/Special Instructions: Remove all weapons and firearms from the home; Refrain from street drugs and alcohol; Diet and activity as tolerated; Follow-up with your PCP in 1-2 days; Keep all scheduled follow-up appointments for continuity of care; If you need your prescriptions refilled, contact your PCP for medical meds. & your aftercare psychiatrist for psych. meds.; Any problems call the Crisis Line at 1- [phone] or return to the nearest ER for a psychiatric evaluation. Discharge Disposition: HOME SELF-CARE
== END 2018-02-12 12:55 | disposition home or self-care (01) | DRG 885 ==
LOC: EC 03:43 → 3MHU 02-07 15:52
PROVIDERS: ADMIT Psychiatry & Neurology Psychiatry; ATTEND Psychiatry & Neurology Psychiatry
DX: F23 Brief psychotic disorder (principal); K85.90 Acute pancreatitis without necrosis or infection, unspecified; F10.239 Alcohol dependence with withdrawal, unspecified; F10.24 Alcohol dependence with alcohol-induced mood disorder; E11.9 Type 2 diabetes mellitus without complications; F10.229 Alcohol dependence with intoxication, unspecified; F17.200 Nicotine dependence, unspecified, uncomplicated; G89.29 Other chronic pain; I10 Essential (primary) hypertension; K76.0 Fatty (change of) liver, not elsewhere classified; Z59.0 Homelessness; Z65.3 Problems related to other legal circumstances; Z87.442 Personal history of urinary calculi; K70.30 Alcoholic cirrhosis of liver without ascites; M10.9 Gout, unspecified; Z56.0 Unemployment, unspecified; Z71.6 Tobacco abuse counseling; F17.210 Nicotine dependence, cigarettes, uncomplicated; Z71.42 Counseling for family member of alcoholic; F60.2 Antisocial personality disorder
CPT/HCPCS: 36415; 76705; 80053; 80306; 81001; 82075; 82150; 83690; 84443; 85025; 85027; 96372; 96374; 96375; 96376; 99285

== ENCOUNTER 2018-08-29 10:10 | Emergency (ER) | payer OTHER ==
[2018-08-29 10:18] VITALS: BP 131/88; PULSE 94; RESP 18; TEMP 97.6
--- NOTE | 2018-08-29 10:33 | ED ---
General Adult HPI - General Chief complaint: Extremity Injury, Upper Stated complaint: lt finger injury Time Seen by Provider: 08/29/18 10:21 Source: patient, RN notes reviewed Limitations: no limitations - History of Present Illness Initial comments: 43-year-old male presents to the emergency department for a chief complaint of left fifth finger pain. Patient states last night he was opening a window when it fell and hit the distal aspect of his left pinky. He states this sent a shooting pain up his hand. Patient states he would like to make sure it is not broken. Denies any other injuries. Patient has no other complaints at this time including shortness of breath, chest pain, abdominal pain, nausea or vomiting, headache, or visual changes. - Related Data Home Medications Medication Instructions Recorded Confirmed Atorvastatin [Lipitor] 20 mg PO HS 08/29/18 08/29/18 Multivitamins, Thera [Multivitamin 1 tab PO DAILY 08/29/18 08/29/18 (formulary)] busPIRone HCl [Buspar] 10 mg PO TID 08/29/18 08/29/18 Allergies Allergy/AdvReac Type Severity Reaction Status Date / Time No Known Allergies Allergy Verified 08/29/18 10:48 Review of Systems ROS Statement: Those systems with pertinent positive or pertinent negative responses have been documented in the HPI. ROS Other: All systems not noted in ROS Statement are negative. Past Medical History Past Medical History: Diabetes Mellitus, Hypertension, Liver Disease, Renal Disease Additional Past Medical History / Comment(s): gout, Kidney stones, Heart murmur, History of Any Multi-Drug Resistant Organisms: None Reported Past Surgical History: No Surgical Hx Reported Past Psychological History: No Psychological Hx Reported Smoking Status: Current some day smoker Past Alcohol Use History: None Reported Past Drug Use History: None Reported - Past Family History Family Additional Family Medical History / Comment(s): Denies family history of CAD General Exam Limitations: no limitations General appearance: alert, in no apparent distress Head exam: Present: atraumatic, normocephalic, normal inspection Eye exam: Present: normal appearance, PERRL, EOMI. Absent: scleral icterus, conjunctival injection, periorbital swelling ENT exam: Present: normal exam, mucous membranes moist Neck exam: Present: normal inspection, full ROM. Absent: tenderness, meningismus, lymphadenopathy Respiratory exam: Present: normal lung sounds bilaterally. Absent: respiratory distress, wheezes, rales, rhonchi, stridor Cardiovascular Exam: Present: regular rate, normal rhythm, normal heart sounds. Absent: systolic murmur, diastolic murmur, rubs, gallop, clicks Extremities exam: Present: tenderness (Tenderness tenderness to the left fifth digit), normal capillary refill (Capillary refill less than 2 seconds, radial pulse 2+.), other (Sensation intact in the left fifth digit). Absent: full ROM (Decreased range of motion of the left fifth MCP joint.), joint swelling (No significant erythema or ecchymosis noted of the left fifth digit) Course Vital Signs 08/29/18 10:15 Temperature 97.6 F Pulse Rate 94 Respiratory 18 Rate Blood Pressure 131/88 O2 Sat by Pulse 99 Oximetry Procedures - Orthopedic Splinting/Casting Injury #1 Side: left Upper Extremity Injury Location: hand, finger Upper Extremity Immobilizer: aluminum form splint Additional Comments: neurovasc intact after splint applied Medical Decision Making - Medical Decision Making 43-year-old male presents for left pinky pain. Patient had a window fall on the distal aspect of his left fifth digit. Exam as documented. X-ray shows fracture of the base of the proximal phalanx left fifth digit. Patient was splinted in a finger splint. He will follow up with primary care orthopedics. He will return here for any worsening symptoms. Disposition Clinical Impression: Finger fracture, left Disposition: HOME SELF-CARE Condition: Good Instructions (If sedation given, give patient instructions): Finger Fracture (ED) Additional Instructions: Please take Tylenol for pain. Rest ice and elevate the left hand. Wear splint. Follow-up with primary care or orthopedics in one to 2 days. Return to the emergency department if you have any worsening symptoms. Is patient prescribed a controlled substance at d/c from ED?: No Referrals: Jocelyn Quintero MD [Primary Care Provider] - 1-2 days Jordan Martin MD [STAFF PHYSICIAN] - 1-2 days Time of Disposition: 11:37
--- NOTE | 2018-08-29 10:53 | XR ---
EXAMINATION TYPE: XR hand complete LT DATE OF EXAM: 08/29/2018 CLINICAL HISTORY: pain TECHNIQUE: Frontal, lateral and oblique images of the left hand are obtained. COMPARISON: None. FINDINGS: Hairline fracture at the base of the fifth proximal phalanx with intra-articular extension. Mild soft tissue swelling. No additional fractures identified this time. The joint spaces appear wit hin normal limits. The overlying soft tissue appears unremarkable. IMPRESSION: Fracture at the base of the proximal phalanx left fifth digit. ICD 10 closed FRACTURE, INITIAL EVALUATION
== END 2018-08-29 11:57 | disposition home or self-care (01) ==
LOC: EC 10:10
DX: S62.617A Displaced fracture of proximal phalanx of left little finger, initial encounter for closed fracture (principal); F17.200 Nicotine dependence, unspecified, uncomplicated; Z87.442 Personal history of urinary calculi; Z79.899 Other long term (current) drug therapy; W20.8XXA Other cause of strike by thrown, projected or falling object, initial encounter; Y92.009 Unspecified place in unspecified non-institutional (private) residence as the place of occurrence of the external cause
CPT/HCPCS: 99283

== ENCOUNTER → 2018-11-01 | Outpatient (CLI) | payer OTHER | LOC: PROCWHC3 10:16 | PROVIDERS: ATTEND Family Medicine | DX: R05 Cough (principal); R50.9 Fever, unspecified | CPT/HCPCS: 87502 ==